=== PATIENT | female | born 1965 | race Caucasian/White ===

== ENCOUNTER → 2016-12-28 | Outpatient (CLI) | payer BC ==
--- NOTE | 2016-12-28 16:20 | KCIC ---
EXAM Bilateral digital screening mammogram. HISTORY 51-year-old female presents for screening mammography. TECHNIQUE Full field digital craniocaudal and mediolateral oblique views of both breasts were obtained. Computer-aided detection is applied. COMPARISON 12/23/2015 FINDINGS Breast parenchymal composition: Level A - Mostly fat. There is no new suspicious mass, calcification or architectural distortion within either breast. There is stable asymmetry in the size of the left greater than right breast. IMPRESSION BI-RADS Category 2: Benign findings. Annual mammography is recommended. This study was interpreted with the benefit of Computerized Aided Detection (CAD). Mammography is not 100% sensitive in detecting breast cancer. Therefore, a self breast exam and a clinical breast exam are very important. A negative mammogram does not negate a clinically suspicious finding and should not result in a delay in biopsying a clinically suspicious abnormality. The patient information was entered into a reminder system with a target date for her next mammogram in year. Electronically signed by: Mary Jo Moody (December 28, 2016 16:18:34)
== END | disposition home or self-care (01) ==
LOC: KCIC MAMMO 15:12
PROVIDERS: ATTEND Obstetrics & Gynecology
DX: Z12.31 Encounter for screening mammogram for malignant neoplasm of breast (principal)
CPT/HCPCS: G0202; 77067

== ENCOUNTER → 2018-01-31 | Outpatient (CLI) | payer BC | END | disposition home or self-care (01) | LOC: KCIC MAMMO 13:32 | DX: Z12.31 Encounter for screening mammogram for malignant neoplasm of breast (principal) | CPT/HCPCS: 77067 ==

== ENCOUNTER → 2019-02-17 | Outpatient (CLI) | payer BC ==
--- NOTE | 2019-02-17 12:53 | KCIC ---
Bilateral digital screening mammograms with 3-D tomosynthesis: Reason for examination: Routine screening. Comparison is made to previous studies dated 01/31/2018 and 12/28/2016. Bilateral mammograms in CC and oblique projections were obtained with 2-D imaging and 3-D tomosynthesis imaging on a [employer] Inspiration unit and reviewed on the workstation. Interpretation was made with the benefit of CAD. The skin and nipples show no abnormalities. No abnormal axillary lymph nodes are seen. The breast parenchyma is predominantly fatty. (Breast density: Category A.) There are no dominant masses, suspicious calcifications or architectural distortion. Benign calcifications are present. Impression: No evidence of malignancy. Recommend routine screening. BI-RAD Category 2: Benign. "Our facility is accredited by the [employer] Mammography [employer]." This patient's information has been entered into a reminder system for the patient to be notified with the results of her examination and a target date for the next mammogram. Electronically signed by: Iveth Munoz MD (02/17/2019 12:51 PM) [id number]
== END | disposition home or self-care (01) ==
LOC: KCIC MAMMO 10:06
PROVIDERS: ATTEND Obstetrics & Gynecology
DX: Z12.31 Encounter for screening mammogram for malignant neoplasm of breast (principal); N64.89 Other specified disorders of breast
CPT/HCPCS: 77063; 77067

== ENCOUNTER → 2020-04-15 | Outpatient (CLI) | payer BC ==
--- NOTE | 2020-04-15 15:27 | KCIC ---
Bilateral digital screening mammograms with 3-D tomosynthesis: Reason for examination: Routine screening. Comparison is made to previous studies dated back to 12/23/2015. Bilateral mammograms in CC and oblique projections were obtained with 2-D imaging and 3-D tomosynthesis imaging on a [employer] Inspiration unit and reviewed on the workstation. Interpretation was made with the benefit of CAD. The skin and nipples show no abnormalities. No abnormal axillary lymph nodes are seen. The breast parenchyma is predominantly fatty. (Breast density: Category A.) There are no dominant masses, suspicious calcifications or architectural distortion. Impression: No evidence of malignancy. Recommend routine screening. BI-RAD Category 1: Negative. "Our facility is accredited by the [employer] Mammography [employer]." This patient's information has been entered into a reminder system for the patient to be notified with the results of her examination and a target date for the next mammogram. Electronically signed by: Iveth Munoz MD (04/15/2020 3:24 PM) [id number]
== END | disposition home or self-care (01) ==
LOC: KCIC MAMMO 12:29
PROVIDERS: ATTEND Obstetrics & Gynecology
DX: Z12.31 Encounter for screening mammogram for malignant neoplasm of breast (principal)
CPT/HCPCS: 77063; 77067

== ENCOUNTER → 2021-05-11 | Outpatient (CLI) | payer BC ==
--- NOTE | 2021-05-11 11:51 | KCIC ---
Bilateral digital screening mammograms with 3-D tomosynthesis: Reason for examination: Routine screening. Comparison is made to previous studies dated back to 12/20/2014. Bilateral mammograms in CC and oblique projections were obtained with 2-D imaging and 3-D tomosynthes is imaging on a [employer] Inspiration unit and reviewed on the workstation. Interpretation was made with the benefit of CAD. The skin and nipples show no abnormalities. No abnormal axillary lymph nodes are seen. The breast par enchyma is predominantly fatty. (Breast density: Category A.) There are small parenchymal densities a nteriorly at the 11:00 A position 6.5 cm from the nipple and 10:00 B position 8 cm from the nipple of the left breast measuring approximately 7.3 and 4.4 mm in size respectively. There is also a small n odular density located at approximately the 10:00 A position of the right breast approximately 5 cm f rom the nipple and measuring approximately 1 cm in size. Further evaluation with ultrasound is recomm ended. There are no other masses, suspicious calcifications or architectural distortion. Impression: Small nodular densities in the 11:00 A and 10:00 B positions of the left breast and at the 10:00 B po sition of the right breast. Further evaluation with ultrasound is recommended. BI-RADS Category 0: Incomplete: Need additional imaging evaluation. "Our facility is accredited by the [employer] Mammography [employer]." This patient's information has been entered into a reminder system for the patient to be notified wit h the results of her examination and a target date for the next mammogram. Electronically signed by: Iveth Munoz MD (05/11/2021 11:49 AM) [id number]
== END ==
LOC: KCIC MAMMO 10:26
PROVIDERS: ATTEND Obstetrics & Gynecology
DX: Z12.31 Encounter for screening mammogram for malignant neoplasm of breast (principal); N63.22 Unspecified lump in the left breast, upper inner quadrant; N63.11 Unspecified lump in the right breast, upper outer quadrant
CPT/HCPCS: 77063; 77067

== ENCOUNTER → 2021-05-18 | Outpatient (CLI) | payer BC ==
--- NOTE | 2021-05-18 17:52 | KCIC ---
Bilateral breast ultrasound: Reason for examination: Nodular densities on screening mammogram. Comparison is made to mammographic exam dated 05/11/2021. Ultrasound examination was performed bilaterally of the breasts and axilla. In the right breast at 10:00 position 6 cm from the nipple, there is a small lobulated nodule measuri ng 7.3 mm in greatest dimension. This corresponds with the mammographic abnormality. Further evaluati on with ultrasound-guided biopsy is recommended. No other cystic or solid nodules are seen. No abnorm al appearing lymph nodes are seen in the right axilla. In the left breast at the 11:00 position 7 cm from the nipple, there is a 6.8 mm hypoechoic circumscr ibed ovoid mass lying in parallel orientation. The appearance is consistent with a small fibroadenoma . No other cystic or solid nodules are seen. No abnormal appearing lymph nodes are seen in the left a xilla. IMPRESSION: Lobulated 7.3 mm nodule in the right breast at the 10:00 position 6 cm from the nipple which correspo nds to the mammographic abnormality. Recommend ultrasound-guided biopsy. Benign-appearing 6.8 mm circumscribed nodule at the 11:00 position 7 cm from the nipple in the left b reast probably representing a fibroadenoma. Recommend 6 month follow-up with ultrasound. BI-RADS Category 4: Suspicious. These findings have been discussed with the patient and the office of Dr. Yadira Woodward was called ab out these findings by myself on 05/18/2021 at 1500 with message left on available answering machine. "Our facility is accredited by the [employer] Mammography [employer]." Electronically signed by: Iveth Munoz MD (05/18/2021 5:49 PM) [facility]
== END ==
LOC: KCIC US 13:36
PROVIDERS: ATTEND Obstetrics & Gynecology
DX: N63.11 Unspecified lump in the right breast, upper outer quadrant (principal); R92.2 Inconclusive mammogram
CPT/HCPCS: 76641